=== PATIENT | female | born 1970 | race Caucasian/White ===

== ENCOUNTER 2024-03-07 14:29 | Emergency (ER) | payer OTHER, SELFPAY ==
[2024-03-07 14:52] VITALS: BP 141/87
[2024-03-07 16:10] LABS: % Basophils 0.8 % (0-2); % Eosinophils 3.5 % (0-6); % Immature Granulocytes 1.4 % (0-0.5); % Lymphocytes 11.5 % (20.5-51.1); % Monocytes 8.9 % (1.7-9.3); % Neutrophils 73.9 % (42.2-75.2); Absolute Basophils 0.1 10^3/uL (0-0.2); Absolute Eosinophils 0.2 10^3/uL (0-0.7); Absolute Immature Granulocytes 0.1 10^3/uL (0-0.05); Absolute Lymphocytes 0.7 10^3/uL (1.2-3.4); Absolute Monocytes 0.6 10^3/uL (0.1-0.6); Absolute Neutrophils 4.6 10^3/uL (1.4-6.5); Hematocrit 37.9 % (37.0-47.0); Hemoglobin 12.9 g/dL (12.0-16.0); Mean Corpuscular Hgb 33.7 pg (27.0-31.0); Mean Platelet Volume 9.7 fL (7.4-10.4); Nucleated Red Blood Cells % 0 %; Platelet Count 284 10^3/uL (130-400); Red Blood Cell Count 3.83 10^6/uL (4.20-5.40); Red Cell Dist. Width 13.2 % (11.5-14.5); White Blood Cell Count 6.3 10^3/uL (4.8-10.8)
[2024-03-07 16:25] LABS: ALT (SGPT) 24 U/L (0-35); AST (SGOT) 28 U/L (14-36); Albumin 4.3 g/dl (3.5-5.0); Alkaline Phosphatase 74 U/L (38-126); Blood Urea Nitrogen 12 mg/dl (7-17); Calcium 9.6 mg/dl (8.4-10.2); Carbon Dioxide 24 mmol/L (22-30); Chloride 108 mmol/L (98-107); Glucose 98 mg/dl (70-99); Sodium 143 mmol/L (135-145); Total Bilirubin 0.4 mg/dl (0.2-1.3); Total Protein 7.2 g/dl (6.3-8.2); eGFR > 60.00
[2024-03-07 16:44] VITALS: BP 181/88
[2024-03-07 16:56] VITALS: BP 174/109
[2024-03-07 17:00] VITALS: BP 187/86
--- NOTE | 2024-03-07 17:13 | ED.GENMED ---
History of Present Illness
<Regino Rogers PA-C - Last Filed: 03/07/24 23:08>
General
Chief Complaint: Weakness
Source: patient and family
Time Seen by Provider: 03/07/24 16:39
History of Present Illness
History of Present Illness:
53-year-old female with past medical history of adenocarcinoma of the lung, hyperlipidemia, hypothyroidism, currently being treated with chemotherapy at [facility], last treatment on February 11, presenting to the emergency department
for evaluation with family after patient had an accidental fall this morning around 6:30 AM stating it felt as if her left leg gave out and her left leg has been weak all day. Patient actually notes that her left leg started to feel funny on
Thursday evening with symptoms persisting and family noticing patient had been dragging her left leg throughout the weekend. Patient also endorses headaches that have been occurring in the morning time over the last month or so. No other symptoms
presently including loss of consciousness, vomiting, visual changes, chest pain or shortness of breath, palpitations, fevers or infectious symptoms.
Past History
<Regino Rogers PA-C - Last Filed: 03/07/24 23:08>
Past History
ED Past Medical History: Cancer (Adenocarcinoma of the lung), Hypercholesterolemia and Hypothyroidism
ED Past Surgical History: Gynecological and Other (Thyroidectomy)
Social History
Tobacco: Former smoker (Quit April 2023)
Alcohol: None
Drug: None
Living: with family
Review of Systems
<Regino Rogers PA-C - Last Filed: 03/07/24 23:08>
Review of Systems
All Other Systems: ROS reviewed and negative except as documented in HPI and ROS
Phy Exam
<Regino Rogers PA-C - Last Filed: 03/07/24 23:08>
Physical Exam
Physical Exam:
GENERAL: Alert , in no apparent distress
HEAD: NCAT
EYE: Clear conjunctiva
NECK: Supple, no midline tenderness
ENT: o/p clr, mmm.
CARDIAC: Regular rate and rhythm .
LUNGS: Clear breath sounds bilaterally, no acute respiratory distress, no wheezes/rales/rhonchi
ABDOMEN: Soft, without focal tenderness, no r/g, no cvat
NEUROLOGICAL: Alert and oriented x 3, right lower extremity has 5 out of 5 strength, left lower extremity 4 out of 5 but intact and equal sensation throughout. Right upper extremity 5 out of 5 strength, left upper extremity 4+ out of 5 strength but
intact and equal sensation throughout. Intact and equal deep tendon reflexes to the bilateral lower extremities
SKIN: Warm and dry, skin intact.
MUSCULOSKELETAL: well perfused.
PSYCH: Normal and appropriate interaction.
Scores
<Regino Rogers PA-C - Last Filed: 03/07/24 23:08>
Heart Failure Risk
Heart Failure Risk Score: Not Applicable
Heart Score for Chest Pain Patients
STEMI patient?: Not applicable
Withdrawal Assessment of Alcohol
Withdrawal Assessment Completed?: Not applicable
Course
<Regino Rogers PA-C - Last Filed: 03/07/24 23:08>
Orders/Labs/Results
Orders:
Orders
03/07/24 15:01
CT Head W/o Iv Contrast Urgent
Comment:
Reason For Exam: extrem. weakness
03/07/24 15:19
Complete Blood Count/With Diff Urgent
Comprehensive Metabolic Panel Urgent
03/07/24 16:55
Type+Screen Urgent
Dexamethasone Sod Phosphate [Decadron] 10 mg IV NOW STA
Levetiracetam Injectable [Keppra] 500 mg IV NOW STA
03/07/24 20:50
Alprazolam [Xanax] 0.5 mg PO NOW STA
Abnormal Lab Results
03/07/24
15:19
RBC 3.83 L 10^6/uL
(4.20-5.40)
MCH 33.7 H pg
(27.0-31.0)
Abs Immat Gran (auto) 0.1 H 10^3/uL
(0-0.05)
Absolute Lymphs (auto) 0.7 L 10^3/uL
(1.2-3.4)
Immature Gran % 1.4 H %
(0-0.5)
Lymphocytes % 11.5 L %
(20.5-51.1)
Chloride 108 H mmol/L
(98-107)
03/07/24 15:19
03/07/24 15:19
Vital Signs
Initial and Last Documented VS:
Initial Vital Signs
Temp Pulse Resp BP Pulse Ox
98.2 F 89 20 141/87 99
03/07/24 14:52 03/07/24 14:52 03/07/24 14:52 03/07/24 14:52 03/07/24 14:52
Last Documented Vital Signs
Temp Pulse Resp BP Pulse Ox
98.2 F 92 21 177/99 98
03/07/24 14:52 03/07/24 20:00 03/07/24 18:15 03/07/24 18:00 03/07/24 20:00
<Mele Bearden MD - Last Filed: 03/07/24 17:39>
Orders/Labs/Results
Orders:
Orders
03/07/24 15:01
CT Head W/o Iv Contrast Urgent
Comment:
Reason For Exam: extrem. weakness
03/07/24 15:19
Complete Blood Count/With Diff Urgent
Comprehensive Metabolic Panel Urgent
03/07/24 16:55
Type+Screen Urgent
Dexamethasone Sod Phosphate [Decadron] 10 mg IV NOW STA
Levetiracetam Injectable [Keppra] 500 mg IV NOW STA
03/07/24 20:50
Alprazolam [Xanax] 0.5 mg PO NOW STA
Abnormal Lab Results
03/07/24
15:19
RBC 3.83 L 10^6/uL
(4.20-5.40)
MCH 33.7 H pg
(27.0-31.0)
Abs Immat Gran (auto) 0.1 H 10^3/uL
(0-0.05)
Absolute Lymphs (auto) 0.7 L 10^3/uL
(1.2-3.4)
Immature Gran % 1.4 H %
(0-0.5)
Lymphocytes % 11.5 L %
(20.5-51.1)
Chloride 108 H mmol/L
(98-107)
03/07/24 15:19
03/07/24 15:19
Vital Signs
Initial and Last Documented VS:
Initial Vital Signs
Temp Pulse Resp BP Pulse Ox
98.2 F 89 20 141/87 99
03/07/24 14:52 03/07/24 14:52 03/07/24 14:52 03/07/24 14:52 03/07/24 14:52
Last Documented Vital Signs
Temp Pulse Resp BP Pulse Ox
98.2 F 92 21 177/99 98
03/07/24 14:52 03/07/24 20:00 03/07/24 18:15 03/07/24 18:00 03/07/24 20:00
<Regino Rogers PA-C - Last Filed: 03/07/24 23:08>
MDM/Problems Addressed
Differential Diagnosis Includes:
Metastatic disease/mass, intracranial bleeding, CVA, migraine, seizure
MDM/Problems Addressed:
53-year-old female presenting to the emergency department for evaluation of left lower extremity weakness causing patient to fall earlier today, weakness has actually been present since Thursday of last week but has been having headaches for at
least 1 month. Labs and a head CT were ordered from triage. I reviewed the head CT and there does appear to be significant vasogenic edema within the right frontotemporal region. I had notified radiology who had just finished reviewing the report
and is entering the read currently. Patient was given 10 mg Decadron and 5 Keppra for seizure prophylaxis. Given patient's care is at [facility] she is requesting to be transferred to their facility for continuity of care. Patient
is otherwise hemodynamically stable.
Chronic conditions affecting care: Cancer
Acute Exacerbation and/or Progression of Chronic Illness: Cancer
<Regino Rogers PA-C - Last Filed: 03/07/24 23:08>
*Radiology
Radiology exam reviewed: preliminary read by ED provider and radiology read reviewed
*Pulse Oximetry
Patient hypoxic: no
*Gut Carrier Interpretation
Rate: normal
Rhythm: sinus
*Critical Care Note
Total Time (30-74mins, 75-104mins- exclusive of procedures): 30
comment:
Critical care statement: A total of 30 minutes of critical care time was provided for this patient. This includes management of unstable vital signs, evaluation of the patient at bedside, reviewing the patient's pertinent medical records, discussion
with consultants, review of old EKGs and review of pertinent medical records. This time with separate from time utilized to perform the aforementioned documented procedures
<Regino Rogers PA-C - Last Filed: 03/07/24 23:08>
Patient Management
Discussion with other providers: Welder Setter Resistance Machine
Escalation/DeEscalation of care consider admission/obs:
I spoke to Dr. Hodge, neurosurgeon on-call at [facility], who accepts patient in transfer and is in agreement with our treatment plan here. Arranging for transport.
ED Attending Note
<Regino Rogers PA-C - Last Filed: 03/07/24 23:08>
-
Portions of this chart may have been created with voice recognition software.� Occasional wrong word or��sound alike� substitutions may have occurred due to the inherent limitations of voice recognition software.
<Mele Bearden MD - Last Filed: 03/07/24 17:39>
ED Attending Note
Patient seen and examined by attending physician: Yes
ED Attending Note:
I have seen and evaluated the patient with a [id number] encounter. I have spoken to the advance practicer provider and involved in the medical history, the physical exam, medical decision making.
Evaluation and management service: agree unless noted differently below.
Results interpretation: agree unless noted differently below.
Focused HPI: 53-year-old female with a past medical history as documented notable for metastatic lung cancer on chemotherapy through [facility] since April. She presents today for evaluation of left leg weakness for the past 5 days. She says it has
progressed and today it was weak to the point that she actually had a minor fall with head strike. She says she has also been having daily headaches for the past week or so. She denies any neck pain. Denies any change in her vision or speech.
Denies any weakness on the right side.
Physical exam: Awake alert not in distress. Vital signs noted for mild hypertension. Cranial nerves are intact 2 through 12, speech fluid no dysarthria or aphasia. She has subtle weakness on hvac/r service technician strength 4/5 in the left upper extremity, proximal
strength intact left upper extremity 5/5; she has weakness 3/5 proximally and distally in the left lower extremity. Strength and sensation intact 5/5 right upper and lower extremity.
Medical Decision Makin-year-old female presents for evaluation of left-sided weakness and headaches over the past week in the setting of known cancer. She had labs sent in triage including a CBC and a CMP which showed no clinically significant
abnormalities. She had a CT head in triage which showed metastatic lesions in the brain with surrounding edema. PA discussed case with team down at [place], will arrange for transfer for admission. Treat with dexamethasone and Keppra.
Discharge Plan
Departure
Patient Disposition: Acute Care Hospital
Date of Disposition: 03/07/24
Time of Disposition: 17:40
Discharge Problem:
Malignant neoplasm metastatic to brain, Acute left hemiparesis
Referrals:
[facility] [Other]
Hospital Transfer
Other hospital: [facility]
I certify that the patient requires transfer: Yes
Discussed case with accepting physician: Dr. Hodge
Reason for transfer: higher level of care, medical necessity, specialties available and continuity of care PCP
Interventions
Interventions:
*Risk Screen - Suicide Last Done: 03/07/24 14:52
*General Assessment Last Done: 03/07/24 14:52
*Neglect/Abuse Screening Last Done: 03/07/24 14:52
ED- Fall Risk Assessment Last Done: 03/07/24 21:40
*Nursing Disposition Last Done: 03/07/24 21:40
ED- Cardiac Assessment Last Done: 03/07/24 17:06
ED- Neurological Assessment Last Done: 03/07/24 17:06
ED- Pulmonary Assessment Last Done: 03/07/24 17:06
Discharge Date and Time
Discharge Date/Time: 03/07/24 21:42
Print Language: FAROESE
[2024-03-07] MEDS: KEPPRA 500 MG IV (17:14)
[2024-03-07] MEDS: DECADRON 10 MG IV (17:14)
[2024-03-07 18:00] VITALS: BP 177/99
[2024-03-07 18:08] VITALS: BMI 25.8
[2024-03-07] MEDS: XANAX 0.5 MG PO (20:58)
== END 2024-03-07 21:42 | disposition short-term general hospital (02) ==
LOC: EMR 14:29
PROVIDERS: EMERGENCY PHYSICIAN Emergency Medicine
DX: C34.90 Malignant neoplasm of unspecified part of unspecified bronchus or lung (principal); C79.31 Secondary malignant neoplasm of brain; G81.94 Hemiplegia, unspecified affecting left nondominant side; R51.9 Headache, unspecified; W19.XXXA Unspecified fall, initial encounter; E78.00 Pure hypercholesterolemia, unspecified; E89.0 Postprocedural hypothyroidism; Z87.891 Personal history of nicotine dependence; Z88.0 Allergy status to penicillin; Z91.041 Radiographic dye allergy status
CPT/HCPCS: 99291; 96374; 96375; 70450; 80053; 85025

== ENCOUNTER → 2024-05-03 09:03 | Outpatient (REF) | payer OTHER, SELFPAY ==
[2024-05-03 10:30] LABS: Hematocrit 35.4 % (37.0-47.0); Hemoglobin 12.1 g/dL (12.0-16.0); Mean Corp Hgb Conc. 34.2 g/dL (33.0-37.0); Mean Corpuscular Hgb 33.2 pg (27.0-31.0); Mean Corpuscular Volume 97.3 fL (81.0-99.0); Mean Platelet Volume 11.7 fL (7.4-10.4); Platelet Count 40 10^3/uL (130-400); Red Blood Cell Count 3.64 10^6/uL (4.20-5.40); Red Cell Dist. Width 13.4 % (11.5-14.5); White Blood Cell Count 10.5 10^3/uL (4.8-10.8)
[2024-05-03 13:23] LABS: Segmented Neutrophils 70 % (42-75)
[2024-05-03 13:24] LABS: Absolute Neutrophils -Man Diff 9.6 10^3/uL (1.4-6.5); Band Neutrophils 22 % (0-3); Lymphocytes 4 % (20-51); Monocytes 3 % (2-9); Myelocytes 1 % (-); Normal RBC Morphology Yes; Platelets Checked Yes; Total Cells Counted 100
== END ==
LOC: REG 09:03
PROVIDERS: ATTENDING PHYSICIAN Nurse Practitioner Adult Health; OTHER PHYSICIAN Internal Medicine
DX: C34.91 Malignant neoplasm of unspecified part of right bronchus or lung (principal)
CPT/HCPCS: 36415; 85025

== ENCOUNTER 2024-05-19 06:06 | Inpatient (IN) | payer OTHER, SELFPAY ==
[2024-05-18 22:45] VITALS: BMI 28.8
[2024-05-18 22:54] VITALS: BP 156/92
--- NOTE | 2024-05-18 23:13 | ED.GENMED ---
History of Present Illness
<Mele Bearden MD - Last Filed: 05/19/24 00:46>
General
Chief Complaint: Abdominal Symptoms
Source: patient
Exam Limitations: none
Time Seen by Provider: 05/18/24 23:18
Nursing documentation reviewed up to this point in time: agreed with
History of Present Illness
History of Present Illness:
53-year-old female with a past medical history of hypothyroidism, metastatic lung cancer, DVT who presents to the emergency department with her for evaluation of hematemesis. Patient reports that she was having heartburn all day today and
then this evening began to feel nauseated and had 2 episodes of hematemesis�she describes dark brown coffee ground emesis with blood clots mixed in. She has not noticed any black or bloody stools. She denies any shortness of breath,
dizziness/lightheadedness. She denies similar issues in the past. She does note that she has chronic back pain and has been taking 800 mg of Motrin regularly. She is on Eliquis for DVT�she says she has bilateral lower extremity DVTs. Her last
dose of Eliquis was this morning. She follows at [facility] for cancer care currently undergoing chemotherapy.
Past History
<Everett Brandt DO - Last Filed: >
Past History
ED Past Medical History: Cancer (Adenocarcinoma of the lung), Hypercholesterolemia and Hypothyroidism
ED Past Surgical History: Gynecological and Other (Thyroidectomy)
Social History
Tobacco: Former smoker (Quit April 2023)
Alcohol: None
Drug: None
Living: with family
Review of Systems
<Mele Bearden MD - Last Filed: 05/19/24 00:46>
Review of Systems
All Other Systems: ROS reviewed and negative except as documented in HPI and ROS
Constitutional: Denies fever
Respiratory: Denies trouble breathing
Cardiac: Reports chest pain (Heartburn)
ABD/GI: Reports nausea and vomiting; Denies abdominal pain, bloody stools or black stools
: Denies flank pain
Musculoskeletal: Reports back pain (Chronic)
Neurological: Denies dizzy or headache
Phy Exam
<Mele Bearden MD - Last Filed: 05/19/24 00:46>
Physical Exam
Physical Exam:
General: Awake, alert, oriented x3
Head: Normocephalic, atraumatic
Eyes: Conjunctiva normal, sclera anicteric
Throat: Airway intact, handling secretions
Neck: Trachea midline
Lungs: Clear to auscultation bilaterally, no wheezing, rales, rhonchi
Heart: Tachycardia with regular rhythm, no murmurs, gallops, or rubs
Abd: Soft, non distended, nontender
Rectal: Brown stool Hemoccult negative
Neuro: No gross deficits
Extremities: +2 pitting edema in the legs bilaterally; extremities are warm and well-perfused
Scores
<Mele Bearden MD - Last Filed: 05/19/24 00:46>
Heart Failure Risk
Heart Failure Risk Score: Not Applicable
Heart Score for Chest Pain Patients
STEMI patient?: Not applicable
Withdrawal Assessment of Alcohol
Withdrawal Assessment Completed?: Not applicable
Course
<Mele Bearden MD - Last Filed: 05/19/24 00:46>
Orders/Labs/Results
Orders:
Orders
05/18/24 23:18
Cardiac Monitoring- Treatment ONCE
IV Insert/Care/Rem.- Treatment PRN
05/18/24 23:20
Complete Blood Count/With Diff Urgent
Comprehensive Metabolic Panel Urgent
Manual Differential Urgent
PTT Urgent
Prothrombin Time Urgent
05/18/24 23:21
Type+Screen Urgent
0.9% Sodium Chloride 1000 ml [Nss] 1,000 ml IV BOLUS
05/18/24 23:33
ABO2 Routine
BBK Wristband Number:
Associate notified that ABO2 has been ordered: [id number]
Date: 05/18/24
Time: 23:33
Buggy Driver ID: [id number]
05/18/24 23:37
Pantoprazole [Protonix IV] 80 mg IV NOW STA
05/18/24 23:39
Morphine Sulfate 4 mg IV NOW STA
05/18/24 23:42
Electrocardiogram (*1) Urgent
Reason for Study: Tachycardia
EKG- Treatment ONCE
Abnormal Lab Results
05/18/24
23:20
WBC 34.0 H 10^3/uL
(4.8-10.8)
RBC 3.46 L 10^6/uL
(4.20-5.40)
Hgb 11.7 L g/dL
(12.0-16.0)
Hct 34.2 L %
(37.0-47.0)
MCH 33.8 H pg
(27.0-31.0)
RDW 15.7 H %
(11.5-14.5)
Plt Count 112 L 10^3/uL
(130-400)
Abs Neuts (Manual) 29.5 H 10^3/uL
(1.4-6.5)
Segmented Neutrophils 79 H %
(42-75)
Band Neutrophils 8 H %
(0-3)
Lymphocytes (Manual) 8 L %
(20-51)
Monocytes (Manual) 1 L %
(2-9)
Sodium 131 L mmol/L
(135-145)
Chloride 96 L mmol/L
(98-107)
BUN 21 H mg/dl
(7-17)
Glucose 100 H mg/dl
(70-99)
Total Bilirubin 1.4 H mg/dl
(0.2-1.3)
AST 45 H U/L
(14-36)
ALT 100 H U/L
(0-35)
Alkaline Phosphatase 693 H U/L
(38-126)
05/18/24 23:20
05/18/24 23:20
Vital Signs
Initial and Last Documented VS:
Initial Vital Signs
Pulse Resp BP Pulse Ox
130 26 156/92 93
05/18/24 22:54 05/18/24 22:54 05/18/24 22:54 05/18/24 22:54
Last Documented Vital Signs
Pulse Resp BP Pulse Ox
112 19 171/94 92
05/19/24 00:30 05/19/24 00:30 05/19/24 00:00 05/18/24 23:52
<Everett Brandt, - Last Filed: >
Orders/Labs/Results
Orders:
Orders
05/18/24 23:18
Cardiac Monitoring- Treatment ONCE
IV Insert/Care/Rem.- Treatment PRN
05/18/24 23:20
Complete Blood Count/With Diff Urgent
Comprehensive Metabolic Panel Urgent
Manual Differential Urgent
PTT Urgent
Prothrombin Time Urgent
05/18/24 23:21
Type+Screen Urgent
0.9% Sodium Chloride 1000 ml [Nss] 1,000 ml IV BOLUS
05/18/24 23:33
ABO2 Routine
BBK Wristband Number:
Associate notified that ABO2 has been ordered: [id number]
Date: 05/18/24
Time: 23:33
Buggy Driver ID: [id number]
05/18/24 23:37
Pantoprazole [Protonix IV] 80 mg IV NOW STA
05/18/24 23:39
Morphine Sulfate 4 mg IV NOW STA
05/18/24 23:42
Electrocardiogram (*1) Urgent
Reason for Study: Tachycardia
EKG- Treatment ONCE
Abnormal Lab Results
05/18/24
23:20
WBC 34.0 H 10^3/uL
(4.8-10.8)
RBC 3.46 L 10^6/uL
(4.20-5.40)
Hgb 11.7 L g/dL
(12.0-16.0)
Hct 34.2 L %
(37.0-47.0)
MCH 33.8 H pg
(27.0-31.0)
RDW 15.7 H %
(11.5-14.5)
Plt Count 112 L 10^3/uL
(130-400)
Abs Neuts (Manual) 29.5 H 10^3/uL
(1.4-6.5)
Segmented Neutrophils 79 H %
(42-75)
Band Neutrophils 8 H %
(0-3)
Lymphocytes (Manual) 8 L %
(20-51)
Monocytes (Manual) 1 L %
(2-9)
Sodium 131 L mmol/L
(135-145)
Chloride 96 L mmol/L
(98-107)
BUN 21 H mg/dl
(7-17)
Glucose 100 H mg/dl
(70-99)
Total Bilirubin 1.4 H mg/dl
(0.2-1.3)
AST 45 H U/L
(14-36)
ALT 100 H U/L
(0-35)
Alkaline Phosphatase 693 H U/L
(38-126)
05/18/24 23:20
05/18/24 23:20
Vital Signs
Initial and Last Documented VS:
Initial Vital Signs
Pulse Resp BP Pulse Ox
130 26 156/92 93
05/18/24 22:54 05/18/24 22:54 05/18/24 22:54 05/18/24 22:54
Last Documented Vital Signs
Pulse Resp BP Pulse Ox
112 19 171/94 92
05/19/24 00:30 05/19/24 00:30 05/19/24 00:00 05/18/24 23:52
<Mele Bearden MD - Last Filed: 05/19/24 00:46>
MDM/Problems Addressed
Differential Diagnosis Includes:
Upper GI bleeding could be secondary to gastritis/esophagitis, ulcer, AVM, etc
MDM/Problems Addressed:
53-year-old female presents for evaluation of hematemesis x 2 episodes in the setting of heartburn today. She arrives to us marginally hypertensive, markedly tachycardic with pulse in the 130s in triage�heart rate 110s on my assessment. She is
notably on Eliquis for bilateral DVTs that were recently diagnosed. Last dose was this morning. Bilateral IVs placed. Labs sent off including a CBC and a CMP, type and screen. Will treat with IV Protonix. Patient is due for her nighttime
oxycodone will instead give IV medications with active upper GI bleeding.
Labs reviewed: CBC shows leukocytosis to 34 suspect likely related to active cancer treatments. Her hemoglobin is 11.7 prior value 12.1. Marginal thrombocytopenia 112. Her CMP shows slightly elevated BUN, marginal hyponatremia. LFTs mildly
abnormal in the setting of known metastatic cancer. She has not had additional vomiting here heart rate improving. She was given IV Protonix. She was consented for blood in case of bleed we will plan to admit for monitoring and trending of
hemoglobins. Discussed case with hospitalist.
Chronic conditions affecting care:
Lung cancer on chemotherapy; DVT on Eliquis
<Mele Bearden MD - Last Filed: 05/19/24 00:46>
*Pulse Oximetry
Patient hypoxic: no
*Critical Care Note
Total Time (30-74mins, 75-104mins- exclusive of procedures): Not Applicable
Data Reviewed
Review of Other/Old Records Reveals: Labs and Records
Source: patient and spouse
<Mele Bearden MD - Last Filed: 05/19/24 00:46>
Patient Management
Discussion with other providers: Hospitalist (Discussed with hospitalist)
Escalation/DeEscalation of care consider admission/obs:
Admission indicated
ED Attending Note
<Everett Brandt DO - Last Filed: >
-
Portions of this chart may have been created with voice recognition software.� Occasional wrong word or��sound alike� substitutions may have occurred due to the inherent limitations of voice recognition software.
Discharge Plan
Departure
Patient Disposition: Admit
Date of Disposition: 05/19/24
Time of Disposition: 00:46
Admit to doctor: Th[facility]
Presentation/result/management discussed w/ accepting MD/DO: Hospitalist
Discharge Problem:
Acute upper GI bleed
Referrals:
UNKNOWN - PT DOES,NOT KNOW [Family Provider] -
Interventions
Interventions:
*Risk Screen - Suicide Last Done: 05/18/24 22:54
*General Assessment Last Done: 05/18/24 23:19
*Neglect/Abuse Screening Last Done: 05/18/24 22:54
ED- Fall Risk Assessment Last Done: 05/19/24 00:36
*ED COVID-19 Vaccine History Last Done: 05/18/24 23:19
ME-Dsrrqo-Iwmjwmyemg Assessment Last Done: 05/18/24 23:19
Discharge Date and Time
Print Language: SPANISH
[2024-05-18 23:15] VITALS: BP 193/105
[2024-05-18 23:32] LABS: Hematocrit 34.2 % (37.0-47.0); Hemoglobin 11.7 g/dL (12.0-16.0); Mean Corp Hgb Conc. 34.2 g/dL (33.0-37.0); Mean Corpuscular Hgb 33.8 pg (27.0-31.0); Mean Corpuscular Volume 98.8 fL (81.0-99.0); Mean Platelet Volume 10.3 fL (7.4-10.4); Platelet Count 112 10^3/uL (130-400); Red Blood Cell Count 3.46 10^6/uL (4.20-5.40); Red Cell Dist. Width 15.7 % (11.5-14.5)
[2024-05-18 23:40] LABS: INR 1.06; PT 14.4 Sec (11.4-14.6)
[2024-05-18 23:41] LABS: ALT (SGPT) 100 U/L (0-35); APTT 24.3 Sec (23.4-35.0); AST (SGOT) 45 U/L (14-36); Albumin 3.8 g/dl (3.5-5.0); Alkaline Phosphatase 693 U/L (38-126); Blood Urea Nitrogen 21 mg/dl (7-17); Calcium 9.1 mg/dl (8.4-10.2); Carbon Dioxide 24 mmol/L (22-30); Chloride 96 mmol/L (98-107); Estimated Creatinine Clearance 93 ml/min; Glucose 100 mg/dl (70-99); Sodium 131 mmol/L (135-145); Total Bilirubin 1.4 mg/dl (0.2-1.3); Total Protein 6.4 g/dl (6.3-8.2); eGFR > 60.00
[2024-05-18] MEDS: NSS 1000 IV (23:49)
[2024-05-18] MEDS: MORPHINE SULFATE 4 MG IV (23:50)
[2024-05-18] MEDS: PROTONIX IV 80 MG IV (23:50)
[2024-05-18 23:52] VITALS: BP 211/109
[2024-05-19] VITALS (14 sets, daily range): BP systolic 136–187; BP diastolic 75–119; PULSE 107–133; O2SAT 96; BMI 28.8
[2024-05-19 00:25] LABS: Absolute Neutrophils -Man Diff 29.5 10^3/uL (1.4-6.5); Band Neutrophils 8 % (0-3); Lymphocytes 8 % (20-51); Metamyelocytes 3 % (-); Monocytes 1 % (2-9); Myelocytes 1 % (-); Normal RBC Morphology Yes; Platelets Checked Yes; Segmented Neutrophils 79 % (42-75); Total Cells Counted 100
--- NOTE | 2024-05-19 01:42 | EDRN ---
S/p morphine, when sleeping, pt.'s pulse ox. at 89% on RA. When awoken, pulse ox. rises to >94% on RA. Pt. placed on 2-3L NC while sleeping.
[2024-05-19] MEDS: MORPHINE SULFATE 4 MG IV (03:02)
--- NOTE | 2024-05-19 05:31 | HPS.HSE ---
Family Physician
-
Family Physician: NOT KNOW UNKNOWN - PT DOES
Chief Complaint
-
Abd Pain, N/V
History of Present Illness
Patient is a 54y F with PMH significant for metastatic lung cancer who presents to ED complaining of burning abdominal discomfort and N/V. Patient is being treated at [facility] for lung cancer. Her last chemo was about one month ago. She has known
metastases to the spine and has recent XRT to the brain (03/2024). Patient states that she developed burning abdominal discomfort yesterday. This persisted progressed throughout the day. She also had pain in th eback - whcih she states is typical
for her / secondary to her known metastatic disease. Today patient had 2 episodes of emesis. She states that the emesis was 'dark brown' and she states that she saw small clots in the emesis.
She presented to the ED for further evaluation and treatment.
Patient was recently admitted at [facility] due to L sided weakness which was attributed to 'small strokes'.
She was noted during that stay to have multiple DVTs and was started on Eliquis for treatment.
She was noted to have elevated HR and BP during that stay and was started on new medications.
Patient has had no episodes of emesis since her arrival here. She continues to complain of some burning discomfort in the abdomen.
Medical History
Past Medical History
Past Medical History: Reports Other
Additional Past Medical History:
Metastatic Lung Cancer
Hypertension
CVA
Multiple DVTs
Hypothyroidism
Pericardial Effusion
Past Surgical History: Reports None
Social History
Tobacco: Former Smoker (Quit smoking one year ago. Approx 20 pack years total use.)
Alcohol: None
Drug: None
Family History
Family History: Other (MGM, Mother, Father, Maternal Aunt: Lung Cancer)
Allergies / Home Medications
Allergies reflects when Allergies were last updated in [facility].
Home Medications with original date entered in [facility]
Allergy/Medication List:
Allergies
Allergy/AdvReac Type Severity Reaction Status Date / Time
Iodinated Contrast Media Allergy Shortness Verified 05/18/24 22:57
of Breath
Penicillins Allergy Rash Verified 05/18/24 22:57
Home Medications
apixaban 5 mg tablet (Eliquis) 5 mg PO BID 05/19/24
atovaquone 750 mg/5 mL oral suspension (Mepron) 1,500 mg PO DAILY 05/19/24
carvedilol 6.25 mg tablet (Coreg) 6.25 mg PO BID 05/19/24
folic acid 1 mg tablet 1 mg PO DAILY 05/19/24
guaifenesin 100 mg/5 mL oral liquid 200 mg PO Q4H PRN cough 05/19/24
levothyroxine 150 mcg tablet (Synthroid) 150 mcg PO DAILY 05/19/24
omeprazole 40 mg capsule,delayed release 40 mg PO DAILY 05/19/24
oxycodone 5 mg tablet 5 mg PO Q6H 05/19/24
polyethylene glycol 3350 17 gram oral powder packet (Miralax) 17 g PO DAILY PRN constipation 05/19/24
prednisone 80 mg PO DAILY 05/19/24
rosuvastatin 10 mg tablet 10 mg PO DAILY 05/19/24
Review of Systems
-
History Source: Patient
A 12 point ROS was completed and negative except as noted: Yes
Constitutional: Reports Fatigue; Denies Fever or Chills
Respiratory: Denies Cough or Trouble Breathing
Cardiac: Reports Chest Pain; Denies Diaphoresis or Palpitations
Abdomen/GI: Reports Abdominal Pain, Nausea and Vomiting; Denies Diarrhea, Constipated, Bloody Stools or Black Stools
: Denies Dysuria or Frequency
Musculoskeletal: Reports Other (Back pain); Denies Joint Pain
Neurological: Denies Dizzy or Headache
Physical Exam
Vital Signs
Vital Signs
Temp Pulse Resp BP Pulse Ox
99.1 F 119 22 174/97 94
05/19/24 04:33 05/19/24 05:15 05/19/24 05:15 05/19/24 05:00 05/19/24 05:15
Physical Exam
General: Other (54y F in no acute distress. Cushinoid appearance.)
HEENT: Other (Dry MM. Thick neck.)
Respiratory: Other (Few coarse breath sounds on the R - otherwise clear.)
Cardiac: S1/S2 and Tachycardia; No Murmur
GI: Soft, Non Distended, Normal Bowel Sounds and Other (Mild epigastric tenderness. No rebound / guarding. Pos BS.)
Musculoskeletal: No Clubbing, No Cyanosis and Other (2+ pitting edema b/l LEs.)
Neuro: AO x 3
Laboratory Results
-
05/18/24 23:20
05/18/24 23:20
Laboratory Results
PT 14.4 Sec (11.4-14.6) 05/18/24 23:20
INR 1.06 05/18/24 23:20
APTT 24.3 Sec (23.4-35.0) 05/18/24 23:20
Total Bilirubin 1.4 mg/dl (0.2-1.3) H 05/18/24 23:20
AST 45 U/L (14-36) H 05/18/24 23:20
ALT 100 U/L (0-35) H 05/18/24 23:20
Alkaline Phosphatase 693 U/L (38-126) H 05/18/24 23:20
Impression/Plan
-
A/P: Patient is a 54y F with PMH significant for metastatic lung cancer being followed at [facility] who presents to ED complaining of abdominal pain and N/V.
Abdominal Pain
N/V - ? Hematemesis
- Admit for further evaluation and treatment.
- Hgb is at baseline, BP is elevated.
- IV PPI BID for now.
- Follow H&H for changes.
- GI evaluation for additional recommendations.
- Patient is on chronic prednisone in addition to recently added Eliquis.
- Hold Eliquis for now.
- Follow for any recurrent N/V/ hematemesis.
- Supportive care / pain control.
Uncontrolled HTN
Sinus Tachycardia
ASCVD / Recent CVA
- Patient reports issues with elevated BP and HR during recent hospital stay as well.
- Continue carvedilol.
- IV hydralazine as needed for elevated BP.
- CT head done in the ED here with no new changes.
- Adjust med regimen as needed for improved BP control.
- PT / OT evaluations.
- Monitor for any new neurologic deficits.
Leukocytosis
- Likely reactive / secondary to underlying malignancy.
- Follow temperature curve / monitor for any new or focal symptoms.
- Observe off of abx for now.
Metastatic Lung Cancer
- Being followed at [facility]. Last chemo about one month ago.
- Patient notes that recent imaging showed significant progression of disease.
- Suspect that many of her current symptoms may be related.
- Supportive care / pain control / etc.
- Follow-up with physicians at [facility] after discharge.
Chronic Steroids
Hypothyroidism
- Continue current T4 replacement.
- Hold PO prednisone acutely given GI symptoms / possible bleeding.
- Replace with dexamethasone equivalent IV for now.
- Resume PO prednisone when able.
Multiple DVTs
- Patient reports several DVTs discovered during recent hospitalization.
- Started on Eliquis - currently on hold for ? bleeding.
- Thrombosis likley secondary to malignancy.
- Resume Eliquis JO ANN.
- No SCDs due to known / current DVTs.
Code Status: Full Code
[2024-05-19] MEDS: LR 1000 IV ×2 (06:00→18:09)
[2024-05-19 06:04] LABS: Hemoglobin 10.8 g/dL (12.0-16.0); Mean Corp Hgb Conc. 34.8 g/dL (33.0-37.0); Mean Corpuscular Hgb 34.4 pg (27.0-31.0); Mean Corpuscular Volume 98.7 fL (81.0-99.0); Red Blood Cell Count 3.14 10^6/uL (4.20-5.40); White Blood Cell Count 25.1 10^3/uL (4.8-10.8)
[2024-05-19 06:32] LABS: Blood Urea Nitrogen 17 mg/dl (7-17); Calcium 8.6 mg/dl (8.4-10.2); Carbon Dioxide 28 mmol/L (22-30); Chloride 98 mmol/L (98-107); Estimated Creatinine Clearance 92 ml/min; Glucose 101 mg/dl (70-99); Potassium 3.3 mmol/L (3.5-5.1); Sodium 133 mmol/L (135-145); eGFR > 60.00
[2024-05-19 07:05] LABS: TSH Reflex To Free T4 3.23 uIU/ml (0.47-4.68)
[2024-05-19] MEDS: COREG 6.25 MG PO ×2 (08:20→20:14)
[2024-05-19] MEDS: FOLVITE 1 MG PO (08:20)
[2024-05-19] MEDS: DECADRON 6 MG IV ×2 (08:21→20:14)
[2024-05-19] MEDS: DILAUDID 0.5 MG IV ×3 (08:23→20:15)
[2024-05-19] MEDS: PROTONIX IV 40 MG IV ×2 (08:27→20:14)
--- NOTE | 2024-05-19 10:26 | CON.GI ---
Addendum entered and electronically signed by April Mercado MD 05/19/24 13:06:
I saw and examined the patient.
The AUT[employer]ATION [employer] CONTROL[employer] INSTRUCTOR or PA's note was reviewed and I agree with the note.
Comment: 4-year-old female with history of metastatic lung adeno carcinoma with recent mets to the liver, spine and the brain, received radiation/chemotherapy and immunotherapy (- [facility]), history of DVTs currently on Eliquis,
hypertension presenting with complaints of epigastric abdominal burning pain and 2 episodes of coffee-ground emesis last night. As per patient she has been taking Advil at least 1 a day for few months for her back pains. She reports taking
omeprazole intermittently but not on a regular basis. She also has history of constipation and takes MiraLAX at home. In the emergency room, hemoglobin was noted to be 11.7 on admission and takes 10.8, platelets of 112 on admission, leukocytosis
noted, elevated transaminases about 1 and half to 2 times upper limit of normal with mildly elevated total bilirubin elevated alkaline phosphatase as well.
Last Eliquis dose was 05/18/2019 5 AM.
-Coffee-ground emesis, currently on prednisone and NSAIDs combination, takes omeprazole sporadically
Rule out ulcer disease, esophagitis, angiectasia versus other
Continue pantoprazole 40 mg IV twice a day
BUN currently normalized and hemoglobin seems to be stable without any evidence of overt bleeding since admission.
For upper endoscopy tomorrow after Plavix washout, will check platelets again tomorrow.
-Leukocytosis likely related to steroids. No fevers.
N.p.o. past midnight but okay from sips of clears at this time.
Original Note:
Consultation
-
Date/Time Consultation Requested: 05/19/24 0730
Date/Time Consultation Performed: 05/19/24 1030
Requesting Provider: Roque Benito DO
Performing Provider: LINDA Dimas, April Mercado MD
Reason for Consultation: dark emesis
Medical History
Chief Complaint / HPI
Chief Complaint: abdominal pain with dark emesis
History of Present Illness:
Pt is a 54yo with hx metastatic adeno lung CA with mets to brain, liver and spine, recent CVA x2 , multiple DVT's on Eliquis newly started 2 weeks ago , HTN with recent addition of medication, thrombocytopenia, ? medication related, hypothyroidism,
pericardial effusion with drainage in July , constipation, now presents with onset of abdominal burning then noted with dark brown emesis. In review with patient she was diagnosed with lung CA in February 2023. She completed chemo, radiation and
immunotherapy. She has followed with Dr. Douglas at [facility]. She had drainage of pericardial effusion in July then noted with recent brain mets requiring gamma knife therapy in March 2024. She also relates know spinal mets but recent imaging
with extensive lesions in then spine. Her last chemo and immunotherapy about 1 month ago but now to change therapy due to effects on liver and also recent noted thrombocytopenia. She is also noted with some hypoxemia on admission now requiring O2,
tachycardia, HTN (with ongoing BP issues), and leukocytosis. hbg 11.7, platelets 112, bili 1.4, AST 45, ALT 100, alk phos 693, INR 1.06.
She admits to daily NSAID use for back pain, and steroid use with brain mets but admits to Omeprazole use daily. She also admits to constipation with use narcotic and uses miralax at home. She denies dysphasia, prior vomiting, diarrhea, blood
or black in stools. Hx EGD years ago with gastritis done in [place]. Prior Cologuard neg about 4 years ago.
Past Medical History
Past Medical History: Cancer (metastatic lung CA), CVA, HTN, Hypothyroidism and Other (multiple DVT's, pericardial effusion with prior drainage, thrombocytopenia ? medication)
Past Surgical History: Gynecological (hysterectomy) and Other (thyroid surgery )
Social History
Tobacco: Former Smoker (quit 2022 )
Alcohol: None
Drug: None
Personal: Other (boyfriend )
Employment: Not Employed (with medical issues )
Family History
Family History: Other (mother with lung CA, no family hx Gi malignancies )
Allergies / Home Medications
Allergy/AdvReac Type Severity Reaction Status Date / Time
Iodinated Contrast Media Allergy Shortness Verified 05/18/24 22:57
of Breath
Penicillins Allergy Rash Verified 05/18/24 22:57
�Medication �Instructions �Recorded
apixaban 5 mg tablet (Eliquis) 5 mg PO BID 05/19/24
atovaquone 750 mg/5 mL oral 1,500 mg PO DAILY 05/19/24
suspension (Mepron)
carvedilol 6.25 mg tablet (Coreg) 6.25 mg PO BID 05/19/24
folic acid 1 mg tablet 1 mg PO DAILY 05/19/24
guaifenesin 100 mg/5 mL oral liquid 200 mg PO Q4H PRN cough 05/19/24
levothyroxine 150 mcg tablet 150 mcg PO DAILY 05/19/24
(Synthroid)
omeprazole 40 mg capsule,delayed 40 mg PO DAILY 05/19/24
release
oxycodone 5 mg tablet 5 mg PO Q6H 05/19/24
polyethylene glycol 3350 17 gram 17 g PO DAILY PRN constipation 05/19/24
oral powder packet (Miralax)
prednisone 80 mg PO DAILY 05/19/24
rosuvastatin 10 mg tablet 10 mg PO DAILY 05/19/24
Review of Systems
-
History Source: Patient and Other (boyfriend )
Constitutional: Reports No Symptoms
EENT: Reports No Symptoms
Respiratory: Reports Cough
Cardiac: Reports Other (new LE swelling b/l)
Abdomen/GI: Reports Abdominal Pain (new onset epigastric burning ), Nausea, Vomiting (coffee ground emesis on admission) and Constipated
: Reports No Symptoms
Musculoskeletal: Reports Other
Neurological: Reports Weakness
Endocrine: Reports No Symptoms
Hematologic/Lymphatic: Reports Bleeding (hematemesis )
Vital Signs
Temp Pulse Resp BP Pulse Ox
98.3 F 124 18 187/119 96
05/19/24 09:07 05/19/24 09:07 05/19/24 09:07 05/19/24 09:07 05/19/24 09:07
Physical Exam
Exam
General: Well Developed, Well Nourished and Other (rounded face)
HEENT: Normocephalic and Other (trace jaundice )
Respiratory: Other (decreased )
Cardiac: Peripheral Edema and Other (tachy)
GI: Soft, Non Tender and Non Distended
Musculoskeletal: No Clubbing and No Cyanosis
Skin: Warm and Dry
Neuro: Awake, Alert and AO x 3
Psych: Calm
Results
WBC 25.1 10^3/uL (4.8-10.8) H 05/19/24 05:53
Hgb 10.8 g/dL (12.0-16.0) L 05/19/24 05:53
Hct 31.0 % (37.0-47.0) L 05/19/24 05:53
MCV 98.7 fL (81.0-99.0) 05/19/24 05:53
Plt Count 10^3/uL (130-400) 05/19/24 05:53
PT 14.4 Sec (11.4-14.6) 05/18/24 23:20
INR 1.06 05/18/24 23:20
APTT 24.3 Sec (23.4-35.0) 05/18/24 23:20
Sodium 133 mmol/L (135-145) L 05/19/24 05:53
Potassium 3.3 mmol/L (3.5-5.1) L 05/19/24 05:53
Chloride 98 mmol/L (98-107) 05/19/24 05:53
Carbon Dioxide 28 mmol/L (22-30) 05/19/24 05:53
BUN 17 mg/dl (7-17) 05/19/24 05:53
Creatinine 0.7 mg/dL (0.6-1.0) 05/19/24 05:53
Calcium 8.6 mg/dl (8.4-10.2) 05/19/24 05:53
Total Bilirubin 1.4 mg/dl (0.2-1.3) H 05/18/24 23:20
AST 45 U/L (14-36) H 05/18/24 23:20
ALT 100 U/L (0-35) H 05/18/24 23:20
Alkaline Phosphatase 693 U/L (38-126) H 05/18/24 23:20
Diagnostic Image Results:
05/19 CXR
Pulmonary vascularity at least top normal, cannot exclude mild acute pulmonary edematous changes.
05/19/24 HCT
No acute intracranial abnormality noted.
There is significantly improved edema within the right frontal lobe.There is a small hypodense focus within the inferior left frontal lobe which appears similar to prior and may represent edema in the setting of metastasis. Further evaluation with
MRI brain with and without contrast may be considered as clinically warranted.
Prior GI Procedures:
EGD: years ago in [place] with gastritis
Colonoscopy: none -- neg cologuard 4 years ago
Assessment / Plan
-
Pt is a 54yo with hx metastatic adeno lung CA diagnosed 02/2023 s/p chemo/rad and prior gamma knife /immunotherapy with mets to brain, liver and spine following at [facility], recent CVA x2 , multiple DVT's on Eliquis newly started 2 weeks ago , HTN
with recent addition of medication, thrombocytopenia, ? medication related, hypothyroidism, pericardial effusion with drainage in July , constipation, now presents with onset of abdominal burning then noted with dark brown emesis. Her last chemo
and immunotherapy about 1 month ago but now to change therapy due to effects on liver and also recent noted thrombocytopenia. She is also noted with some hypoxemia on admission now requiring O2, tachycardia, HTN (with ongoing BP issues), and
leukocytosis. hbg 11.7, platelets 112, bili 1.4, AST 45, ALT 100, alk phos 693, INR 1.06. She admits to daily NSAID use for back pain, and steroid use with brain mets but admits to Omeprazole use daily. She also admits to constipation with use
narcotic and uses miralax at home. Hx EGD years ago with gastritis done in [place]. Prior Cologuard neg about 4 years ago.
-coffee ground emesis/abd buring pain
-metastatitic adeno Ca of lung with mets to spine, brain( on chronic steroids), liver- prior chemo, immunotherapy, radiation, gamma knife therapy
-elevated LFT's with recent stop of immunotherapy due to liver involvement
-thrombocytopenia
-DVT on Eliquis x 2 weeks
-HTN with marked elevation on admission
-constipation
-tachycardia
-hypoxemia on admission
-recent CVA
other med problems:
-thyroidectomy
-hysterectomy
-pericardial effusion
PLAN:
Etiology of coffee ground emesis and burning abdominal pain related to PUD, gastritis, metastatic disease vs other
may have been exacerbated with recent addition of Eliquis with daily NSAID and steroid use
cont PPI BID
trend hbg, platelets and LFT's
Eliquis hold last dose 2/12 AM
NSAID avoidance
ok for sips clears then NPO in AM
tentative EGD in AM if medically stable
medical optimization with resp status and HTN prior to EGD
add Miralax and senna with chronic constipation issues
requested [facility] records for prior imaging, labs, last oncology notes
-
-
Thank you for consultation and allowing me to participate in the patient's care. Please call the demonstrator knitting GI physician during the after hours with any questions or concerns.
[2024-05-19] MEDS: MEPRON SUSPENSION 1500 MG PO (11:41)
[2024-05-19] MEDS: MIRALAX 17 GRAMS PO (11:41)
[2024-05-19] MEDS: VASOTEC 0.625 MG IV ×2 (11:42→20:12)
--- NOTE | 2024-05-19 13:59 | W.PN.HOSP.TC ---
Today's Communication/Plan
-
Assessment / Plan
Assessment / Plan
Gen-AAOx3, NAD
HEENT-NC, AT, anicteric, clear oral mm
Neck-supple
CV-reg, no M, +S1/S2
Lungs-clear B/L
Abd-soft, NT, ND
Musculoskeletal-no edema, no deformity
Skin-warm and dry
Neuro-grossly non-focal
Psych-calm, cooperative
Ms. Hickman is a 54-year-old male with a medical history of lung adenocarcinoma with metastasis to liver brain and bone (diagnosed February 2023, follows at [facility] with Dr. Douglas), recent CVA, multiple DVTs (on Eliquis), hypertension,
hypothyroidism, and pain medication induced constipation who presented with epigastric pain and burning with multiple episodes of coffee-ground emesis. Her Eliquis has been held and she has been started on high-dose IV PPI. She has been admitted
for further evaluation and management of suspected upper GI bleeding.
Upper GI bleeding:
-Holding Eliquis, last dose 5 AM 05/18
-Continue IV PPI twice daily
-N.p.o. after midnight for upper endoscopy 05/20
-Holding home prednisone
DVTs:
-Multiple lower extremity DVTs suspect secondary to active cancer and treatment
-Has been treating with Eliquis started 2 weeks prior to arrival, Eliquis is currently on hold due to upper GI bleeding with plan upper endoscopy tomorrow 05/20
-Restart anticoagulation as soon as safely possible
Lung adenocarcinoma:
-Diagnosed February 2023
-With metastases to liver, spine, and brain
-Underwent gamma knife for brain mets March 2024
-Follows at [facility] with Dr. Douglas
-Last chemo/immunotherapy 1 month ago, recent change in therapy due to adverse liver effects and thrombocytopenia
-Continue pain control for metastatic disease
Hypertension and sinus tachycardia:
-Continue home carvedilol 6.25 mg p.o. twice daily
-Added IV hydralazine as needed
-Continue pain control regimen
Abnormal LFTs:
-Mixed hepatocellular and cholestatic picture
-Suspect secondary to metastatic disease to liver in addition to chemotherapeutic treatments
-Monitor
Hyponatremia:
-Mild
-Monitor
Hypokalemia:
-Mild, serum potassium 3.3
-Replete, continue to monitor
CODE STATUS: Full code
Anticipated Discharge: > 48 hours
Subjective/Interval History
-
Date of Service: May 19, 2024
Patient was seen and examined at bedside this morning. She has some mild epigastric TTP. 2 episodes of coffee-ground emesis last night. Holding Eliquis which she is on for DVTs, last dose 5 AM on 05/18.
Objective Data
-
Labs:
Laboratory Results
05/19/24
05:53
WBC 25.1 H
Hgb 10.8 L
Hct 31.0 L
Plt Count
Sodium 133 L
Potassium 3.3 L
Chloride 98
Carbon Dioxide 28
BUN 17
Creatinine 0.7
Glucose 101 H
Calcium 8.6
Vital Signs:
Vital Signs
Temp Pulse Resp BP Pulse Ox
98.0 F 103 22 174/106 99
05/19/24 11:28 05/19/24 11:28 05/19/24 11:28 05/19/24 11:28 05/19/24 11:28
I&O
05/18/24 05/19/24 05/20/24
06:59 06:59 06:59
Intake Total 560 / 560
Balance 560 / 560
Review of Systems
-
History Source: Patient
All other systems: Reviewed and negative
Abdomen/GI: Reports Abdominal Pain (Epigastric pain)
Physical Exam
-
General: No Apparent Distress
--- NOTE | 2024-05-19 17:34 | CM ---
Patient with Hx metastatic lung cancer, recent stroke with Dx GI bleed, DVTs. Plan EGD tomorrow. O2 2L. Receiving IVF, IV Steroids. PT/OT recommend HH.
Spoke with patient's daughter Ashwini;
the patient resides with her SO Emery in a 2 story house with 2 MICHAEL.
She has been independent in ADLs and ambulation and recently when she began unsteady on her feet and began using her SPC.
The patient has been staying on the first floor, sleeping in a recliner, however there is not a full bathroom on first floor.
The patient has been off work and receiving insurance through [employer].
DME - [facility]
VN - current but doesn't know name of agency
No prior SNF.
PCP - Dr Garcia [facility]
Pharmacy - [facility]
Daughter asking how to obtain caregiver, if family can be paid caregiver. Provided # for [facility] for additional resources.
Daughter lives in [facility]. Patient also has son in [place].
Plan speak with patient and SO.
Plan follow up with patient re; which VN agency is currently seeing her and make referral.
Plan home with VN.
[2024-05-19] MEDS: NSS (PRESERVATIVE FREE) 10 ML IV (20:14)
[2024-05-19] MEDS: SENOKOT 17.2 MG PO (20:19)
[2024-05-20] VITALS (15 sets, daily range): BP systolic 117–181; BP diastolic 65–99; BMI 29.2
[2024-05-20] MEDS: DILAUDID 0.5 MG IV ×3 (04:23→19:47)
[2024-05-20] MEDS: FLUSH (NSS) 1 FLUSH IV (04:24)
[2024-05-20] MEDS: SYNTHROID 150 MCG PO (05:36)
[2024-05-20 07:17] LABS: Hematocrit 29.8 % (37.0-47.0); Hemoglobin 10.1 g/dL (12.0-16.0); Mean Corp Hgb Conc. 33.9 g/dL (33.0-37.0); Mean Corpuscular Volume 100.3 fL (81.0-99.0); Mean Platelet Volume 10.7 fL (7.4-10.4); Platelet Count 55 10^3/uL (130-400); Red Blood Cell Count 2.97 10^6/uL (4.20-5.40); Red Cell Dist. Width 15.8 % (11.5-14.5); White Blood Cell Count 30.2 10^3/uL (4.8-10.8)
[2024-05-20 07:25] LABS: ALT (SGPT) 50 U/L (0-35); AST (SGOT) 20 U/L (14-36); Albumin 2.6 g/dl (3.5-5.0); Alkaline Phosphatase 465 U/L (38-126); Blood Urea Nitrogen 13 mg/dl (7-17); Calcium 8.6 mg/dl (8.4-10.2); Carbon Dioxide 28 mmol/L (22-30); Chloride 95 mmol/L (98-107); Direct Bilirubin 0.3 mg/dl (0.0-0.4); Estimated Creatinine Clearance 108 ml/min; Glucose 103 mg/dl (70-99); Potassium 3.5 mmol/L (3.5-5.1); Sodium 130 mmol/L (135-145); eGFR > 60.00
[2024-05-20] MEDS: LR 1000 IV (08:36)
[2024-05-20] MEDS: MEPRON SUSPENSION 1500 MG PO (08:39)
[2024-05-20] MEDS: DECADRON 6 MG IV ×2 (08:39→19:48)
[2024-05-20] MEDS: PROTONIX IV 40 MG IV ×2 (08:39→19:48)
[2024-05-20] MEDS: COREG 6.25 MG PO ×2 (08:39→19:49)
[2024-05-20] MEDS: NSS (PRESERVATIVE FREE) 10 ML IV ×2 (08:39→19:48)
[2024-05-20] MEDS: FOLVITE 1 MG PO (08:39)
[2024-05-20] MEDS: MIRALAX PO ×2 (08:40→08:41)
[2024-05-20] MEDS: ELIQUIS 5 MG PO ×2 (11:56→19:48)
--- NOTE | 2024-05-20 14:23 | W.PN.HOSP.TC ---
Today's Communication/Plan
-
Assessment / Plan
Assessment / Plan
Gen-AAOx3, NAD
HEENT-NC, AT, anicteric, clear oral mm
Neck-supple
CV-reg, no M, +S1/S2
Lungs-clear B/L
Abd-soft, NT, ND
Musculoskeletal-no edema, no deformity
Skin-warm and dry
Neuro-grossly non-focal
Psych-calm, cooperative
Ms. Hickman is a 54-year-old male with a medical history of lung adenocarcinoma with metastasis to liver brain and bone (diagnosed February 2023, follows at [facility] with Dr. Douglas), recent CVA, multiple DVTs (on Eliquis), hypertension,
hypothyroidism, and pain medication induced constipation who presented with epigastric pain and burning with multiple episodes of coffee-ground emesis. Her Eliquis has been held and she has been started on high-dose IV PPI. She has been admitted
for further evaluation and management of suspected upper GI bleeding.
Upper GI bleeding:
-Status post upper endoscopy today 05/20 with findings of diffuse severely erythematous and edematous gastric mucosa without active bleeding, no biopsies taken due to thrombocytopenia, a single 6 mm sessile polyp noted in the duodenal bulb
-Restarted Eliquis post EGD 05/20, will monitor for rebleeding
-Continue twice daily Protonix for 8 weeks then transition to daily
-Recommend outpatient GI follow-up
-Anticipate discharge home tomorrow 05/21 if no recurrent bleeding
DVTs:
-Multiple lower extremity DVTs suspect secondary to active cancer and treatment
-Had been treating with Eliquis started 2 weeks prior to arrival, Eliquis now restarted after EGD 05/20
-Restart anticoagulation as soon as safely possible
Lung adenocarcinoma:
-Diagnosed February 2023
-With metastases to liver, spine, and brain
-Underwent gamma knife for brain mets March 2024
-Follows at [facility] with Dr. Douglas
-Last chemo/immunotherapy 1 month ago, recent change in therapy due to adverse liver effects and thrombocytopenia
-Continue pain control for metastatic disease
Hypertension and sinus tachycardia:
-Continue home carvedilol 6.25 mg p.o. twice daily
-Added IV hydralazine as needed
-Continue pain control regimen
Abnormal LFTs:
-Mixed hepatocellular and cholestatic picture, improved today
-Suspect secondary to metastatic disease to liver in addition to chemotherapeutic treatments
-Monitor
Hyponatremia:
-Mild
-Monitor
Hypokalemia:
-Mild, serum potassium 3.3 yesterday, repleted
-continue to monitor
CODE STATUS: Full code
Anticipated Discharge: Within 24 hours
Subjective/Interval History
-
Date of Service: May 20, 2024
Patient was seen and examined at bedside this morning. He is awaiting upper endoscopy today for evaluation of GI bleeding. Reports improvement in her epigastric pain.
Objective Data
-
Labs:
Laboratory Results
05/20/24
05:38
WBC 30.2 H
Hgb 10.1 L
Hct 29.8 L
Plt Count 55 L D
Sodium 130 L
Potassium 3.5
Chloride 95 L
Carbon Dioxide 28
BUN 13
Creatinine 0.5 L
Glucose 103 H
Calcium 8.6
Total Bilirubin 1.0
AST 20
ALT 50 H
Alkaline Phosphatase 465 H
Vital Signs:
Vital Signs
Temp Pulse Resp BP Pulse Ox
97.9 F 112 16 123/65 95
05/20/24 14:12 05/20/24 14:12 05/20/24 14:12 05/20/24 14:12 05/20/24 14:12
I&O
05/19/24 05/20/24 05/21/24
06:59 06:59 06:59
Intake Total 1919
Balance 1919
Review of Systems
-
History Source: Patient
All other systems: Reviewed and negative
Physical Exam
-
General: No Apparent Distress
[2024-05-20] MEDS: SENOKOT 17.2 MG PO (19:49)
[2024-05-21] MEDS: DILAUDID 0.5 MG IV ×3 (01:55→11:37)
[2024-05-21 02:58] VITALS: BP 138/81
--- NOTE | 2024-05-21 04:19 | PTCARENOTE ---
Pt assessed as per worklist flowsheet. Pt did c/o back pain. Medicated as ordered with (+) results. Educated on medications administered. No s/s of distress assessed. Will continue to monitor.
[2024-05-21] MEDS: SYNTHROID 150 MCG PO (05:59)
[2024-05-21 06:00] VITALS: BMI 28.9
[2024-05-21 07:00] VITALS: BP 123/76
[2024-05-21] MEDS: FOLVITE 1 MG PO (07:51)
[2024-05-21] MEDS: MEPRON SUSPENSION 1500 MG PO (07:51)
[2024-05-21] MEDS: DECADRON 6 MG IV (07:51)
[2024-05-21] MEDS: ELIQUIS 5 MG PO (07:55)
[2024-05-21] MEDS: MIRALAX 17 GRAMS PO (07:56)
[2024-05-21] MEDS: COREG 6.25 MG PO (07:56)
[2024-05-21] MEDS: NSS (PRESERVATIVE FREE) 10 ML IV (07:56)
[2024-05-21] MEDS: PROTONIX IV 40 MG IV (07:56)
[2024-05-21 08:20] LABS: Hematocrit 29.6 % (37.0-47.0); Hemoglobin 10.1 g/dL (12.0-16.0); Mean Corp Hgb Conc. 34.1 g/dL (33.0-37.0); Mean Corpuscular Hgb 34.1 pg (27.0-31.0); Mean Platelet Volume 11.6 fL (7.4-10.4); Platelet Count 43 10^3/uL (130-400); Red Blood Cell Count 2.96 10^6/uL (4.20-5.40); Red Cell Dist. Width 15.8 % (11.5-14.5); White Blood Cell Count 21.9 10^3/uL (4.8-10.8)
[2024-05-21 08:35] LABS: ALT (SGPT) 33 U/L (0-35); AST (SGOT) 17 U/L (14-36); Albumin 2.7 g/dl (3.5-5.0); Alkaline Phosphatase 395 U/L (38-126); Blood Urea Nitrogen 16 mg/dl (7-17); Calcium 8.6 mg/dl (8.4-10.2); Carbon Dioxide 26 mmol/L (22-30); Chloride 97 mmol/L (98-107); Estimated Creatinine Clearance 107 ml/min; Glucose 115 mg/dl (70-99); Potassium 3.8 mmol/L (3.5-5.1); Sodium 130 mmol/L (135-145); Total Protein 5.1 g/dl (6.3-8.2); eGFR > 60.00
[2024-05-21 09:10] LABS: % Basophils 0.3 % (0-2); % Eosinophils 0.2 % (0-6); % Immature Granulocytes 6.4 % (0-0.5); % Lymphocytes 1.7 % (20.5-51.1); % Monocytes 3.3 % (1.7-9.3); % Neutrophils 88.1 % (42.2-75.2); Absolute Basophils 0.1 10^3/uL (0-0.2); Absolute Eosinophils 0.1 10^3/uL (0-0.7); Absolute Immature Granulocytes 1.4 10^3/uL (0-0.05); Absolute Lymphocytes 0.4 10^3/uL (1.2-3.4); Absolute Monocytes 0.7 10^3/uL (0.1-0.6); Absolute Neutrophils 19.3 10^3/uL (1.4-6.5); Nucleated Red Blood Cells % 0 %
--- NOTE | 2024-05-21 10:54 | W.DCSUMMARY ---
Discharge Summary
Discharge Data
Date of Admission: 05/19/24
Date of Discharge: 05/21/24
-
Pending Results: No
Hospital Course
Ms. 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 Douglas), recent CVA, multiple DVTs (on Eliquis), hypertension,
hypothyroidism, and pain medication induced constipation who presented with epigastric pain and burning with multiple episodes of coffee-ground emesis. Her Eliquis was held and she was started on high-dose IV PPI. She was admitted for further
evaluation and management of suspected upper GI bleeding.
Her hemoglobin at the time of admission was 11.7, down from 12.1 a few weeks prior. Her hemoglobin dropped as low as 10.1 where it remained stable. She was thrombocytopenic with platelet levels between 40,000 and 50,000, which appears stable from
labs prior to this admission and is likely due to her active cancer and treatments. She underwent EGD on 05/20 with findings of diffuse severely erythematous and edematous gastric mucosa without active bleeding. No biopsies were taken due to
thrombocytopenia. A single 6 mm sessile polyp was noted in the duodenal bulb. Her Eliquis was restarted on 05/20 after EGD. She had no evidence of rebleeding. She remained hemodynamically stable throughout her hospitalization. She will be
discharged to home with instructions to continue Protonix twice daily for 8 weeks and then transition to Protonix daily thereafter. She will need outpatient GI follow-up. She had abnormal LFTs which is likely due to her active cancer with liver
metastasis. Her LFTs actually improved throughout her hospitalization. She will be continued on all of her home medications and will need close outpatient follow-up with her primary oncologist for ongoing treatment of her active cancer.
Gen-AAOx3, NAD
HEENT-NC, AT, anicteric, clear oral mm
Neck-supple
CV-reg, no M, +S1/S2
Lungs-clear B/L
Abd-soft, NT, ND
Musculoskeletal-no edema, no deformity
Skin-warm and dry
Neuro-grossly non-focal
Psych-calm, cooperative
Discharge Plan
-
Patient Disposition: Home (Routine Discharge)
Discharge Diagnosis/Procedures: Upper GI bleeding
Diet: No restrictions
Activity: No restrictions
Activity Restrictions/Additional Instructions:
Ms. 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 Douglas), recent CVA, multiple DVTs (on Eliquis), hypertension,
hypothyroidism, and pain medication induced constipation who presented with epigastric pain and burning with multiple episodes of coffee-ground emesis. Her Eliquis was held and she was started on high-dose IV PPI. She was admitted for further
evaluation and management of suspected upper GI bleeding.
Her hemoglobin at the time of admission was 11.7, down from 12.1 a few weeks prior. Her hemoglobin dropped as low as 10.1 where it remained stable. She was thrombocytopenic with platelet levels between 40,000 and 50,000, which appears stable from
labs prior to this admission and is likely due to her active cancer and treatments. She underwent EGD on 05/20 with findings of diffuse severely erythematous and edematous gastric mucosa without active bleeding. No biopsies were taken due to
thrombocytopenia. A single 6 mm sessile polyp was noted in the duodenal bulb. Her Eliquis was restarted on 05/20 after EGD. She had no evidence of rebleeding. She remained hemodynamically stable throughout her hospitalization. She will be
discharged to home with instructions to continue Protonix twice daily for 8 weeks and then transition to Protonix daily thereafter. She will need outpatient GI follow-up. She had abnormal LFTs which is likely due to her active cancer with liver
metastasis. Her LFTs actually improved throughout her hospitalization. She will be continued on all of her home medications and will need close outpatient follow-up with her primary oncologist for ongoing treatment of her active cancer.
Referrals:
April Mercado MD [Active] -
UNKNOWN - PT DOES,NOT KNOW [Family Provider] -
Prescriptions:
Continued
carvedilol [Coreg] 6.25 mg Tablet
6.25 mg PO BID
polyethylene glycol 3350 [Miralax] 17 gram Powder In Packet
17 g PO DAILY PRN (Reason: constipation)
guaifenesin 100 mg/5 mL Liquid
200 mg PO Q4H PRN (Reason: cough)
levothyroxine [Synthroid] 150 mcg Tablet
150 mcg PO DAILY
folic acid 1 mg Tablet
1 mg PO DAILY
atovaquone [Mepron] 750 mg/5 mL Suspension
1,500 mg PO DAILY
oxycodone 5 mg Tablet
5 mg PO Q6H
rosuvastatin 10 mg Tablet
10 mg PO DAILY
Eliquis 5 mg Tablet
5 mg PO BID
prednisone 80 mg
80 mg PO DAILY
Changed
omeprazole 40 mg Capsule,Delayed Release(Dr/Ec)
40 mg PO BID Qty: 0 0RF
Discharge Orders:
Discharge Patient (As Directed); Ordered 05/21/24
Ordered By: Mihai Oliver
Discharge Date and Time
Print Language: KHMER
[2024-05-21 11:54] VITALS: BP 128/74
--- NOTE | 2024-05-21 12:22 | CM ---
Addendum entered by Hanh Collins 05/21/24 12:35:
referral sent to [facility]
Original Note:
Patient seen at bedside with daughter. Patient asking for referral to [facility] as she was current with them. CM will send referral. Patient family to transport patient home. Patient daughter given information about [facility]. CM will continue
to follow for discharge planning needs.
PLan; referral to [facility]
== END 2024-05-21 13:13 | disposition home health service (06) | DRG 378 ==
LOC: 4 EAST ACU 06:06
PROVIDERS: Internal Medicine Gastroenterology; Nurse Practitioner Adult Health; Student in an Organized Health Care Education/Training Program; ADMITTING PHYSICIAN Hospitalist; ATTENDING PHYSICIAN Internal Medicine; CONSULT PHYSICIAN Internal Medicine Gastroenterology; EMERGENCY PHYSICIAN Emergency Medicine
PROC: 0DJ08ZZ Inspection of Upper Intestinal Tract, Via Natural or Artificial Opening Endoscopic (ICD-10-PCS; 2024-05-20)
DX: K29.71 Gastritis, unspecified, with bleeding (principal); C34.90 Malignant neoplasm of unspecified part of unspecified bronchus or lung; C78.7 Secondary malignant neoplasm of liver and intrahepatic bile duct; C79.31 Secondary malignant neoplasm of brain; C79.51 Secondary malignant neoplasm of bone; I82.503 Chronic embolism and thrombosis of unspecified deep veins of lower extremity, bilateral; E87.1 Hypo-osmolality and hyponatremia; E89.0 Postprocedural hypothyroidism; E78.00 Pure hypercholesterolemia, unspecified; E87.6 Hypokalemia; K59.00 Constipation, unspecified; K31.7 Polyp of stomach and duodenum; D69.6 Thrombocytopenia, unspecified; G89.29 Other chronic pain; D72.829 Elevated white blood cell count, unspecified; I10 Essential (primary) hypertension; I25.10 Atherosclerotic heart disease of native coronary artery without angina pectoris; K57.10 Diverticulosis of small intestine without perforation or abscess without bleeding; T38.0X5A Adverse effect of glucocorticoids and synthetic analogues, initial encounter; Z86.73 Personal history of transient ischemic attack (TIA), and cerebral infarction without residual deficits; Z87.891 Personal history of nicotine dependence; Z88.0 Allergy status to penicillin; Z91.041 Radiographic dye allergy status; Z79.890 Hormone replacement therapy; Z79.01 Long term (current) use of anticoagulants; Z79.52 Long term (current) use of systemic steroids; Z79.891 Long term (current) use of opiate analgesic
CPT/HCPCS: 70450; 71046; 80048; 80053; 82248; 84443; 85025; 85027; 85610; 85730; 86850; 86900; 86901; 93005; 96361; 96374; 96375; 96376; 97116; 97162; 97166; 99285